=== PATIENT | female | born 1950 | race Caucasian/White ===

== ENCOUNTER → 2016-05-10 | Outpatient (CLI) | payer SELFPAY ==
[2016-05-10 11:44] LABS: ABSOLUTE EOSINOPHILS # (AUTO) 0.1 10^3/uL (0.0-0.6); ABSOLUTE LYMPHOCYTES (AUTO) 1.6 10^3/uL (0.5-4.7); ABSOLUTE MONOCYTES (AUTO) 0.2 10^3/uL (0.1-1.4); BASOPHILS % (AUTO) 0.2 % (0-2); HEMATOCRIT 23.6 % (36.0-47.0); HEMOGLOBIN 8.1 g/dL (12.0-15.5); HGB HCT DIFFERENCE 0.7; LYMPHOCYTES % (AUTO) 41.9 % (13-45); MEAN CORPUSCULAR HGB CONC 34.3 g/dL (32.0-36.0); MEAN CORPUSCULAR VOLUME 93 fl (80-97); MONOCYTES % (AUTO) 4.7 % (3-13); RED BLOOD COUNT 2.53 10^6/uL (3.72-5.28); RED CELL DISTRIBUTION WIDTH 21.1 % (11.5-14.0); SEGMENTED NEUTROPHILS % (AUTO) 51.2 % (42-78); WHITE BLOOD COUNT 3.9 10^3/uL (4.0-10.5)
== END ==
LOC: OD 09:50
PROVIDERS: ATTEND Internal Medicine Hematology & Oncology
DX: D64.9 Anemia, unspecified (principal)
CPT/HCPCS: 36415; 85025

== ENCOUNTER 2016-09-12 18:54 | Inpatient (IN) | payer MEDICARE, OTHER ==
--- NOTE | 2016-09-12 19:23 | ER Document Report ---
ED General - General Chief Complaint: Respiratory Distress Stated Complaint: RESPIRATORY DISTRESS Time Seen by Provider: 09/12/16 18:57 Mode of Arrival: Medic Information source: Patient, Emergency Med Personnel Notes: 66-year-old female history of lung CA congestive heart failure presents in respiratory distress. Patient is noted to be in significant distress by EMS satting 85% on room air. Patient was given nonrebreather and O2 sats improved to 100%, patient does note lower extremity edema TRAVEL OUTSIDE OF THE [place] IN LAST 30 DAYS: No - HPI Onset: Just prior to arrival Onset/Duration: Sudden Quality of pain: No pain Severity: Moderate Pain Level: Denies Associated symptoms: Shortness of breath Exacerbated by: Walking Relieved by: Denies Similar symptoms previously: Yes Recently seen / treated by doctor: Yes - Related Data Allergies/Adverse Reactions: codeine [Codeine] Allergy (Verified 09/07/13 20:26) propoxyphene napsylate [From Darvocet-N 100] Allergy (Verified 09/07/13 20:26) Past Medical History - Social History Smoking Status: Former Smoker Cigarette use (# per day): No Chew tobacco use (# tins/day): No Smoking Education Provided: No Family History: Reviewed & Not Pertinent - Past Medical History Cardiac Medical History: Reports: Hx Hypertension Denies: Hx Heart Attack Pulmonary Medical History: Denies: Hx Asthma Neurological Medical History: Denies: Hx Cerebrovascular Accident, Hx Seizures Endocrine Medical History: Reports: Hx Diabetes Mellitus Type 1, Hx Diabetes Mellitus Type 2 GI Medical History: Reports: Hx Hiatal Hernia. Denies: Hx Hepatitis, Hx Ulcer Infectious Medical History: Denies: Hx Hepatitis Past Surgical History: Reports: Hx Appendectomy, Hx Hysterectomy. Denies: Hx Mastectomy, Hx Open Heart Surgery, Hx Pacemaker - Immunizations Hx Diphtheria, Pertussis, Tetanus Vaccination: No Hx Pneumococcal Vaccination: 01/09/13 Review of Systems - Review of Systems Notes: REVIEW OF SYSTEMS: CONSTITUTIONAL : Denies fever, chills, or sweats. Denies recent illness. EENT: Denies eye, ear, throat, or mouth pain or symptoms. Denies nasal or sinus congestion or discharge. Denies throat, tongue, or mouth swelling or difficulty swallowing. CARDIOVASCULAR: Denies chest pain. Denies palpitations or racing or irregular heart beat. Denies ankle edema. RESPIRATORY: Admits to shortness of breath difficulty breathing GASTROINTESTINAL: Denies abdominal pain or distention. Denies nausea, vomiting , or diarrhea. Denies blood in vomitus, stools, or per rectum. Denies black, tarry stools. Denies constipation. GENITOURINARY: Denies difficulty urinating, painful urination, burning, frequency, blood in urine, or discharge. FEMALE GENITOURINARY: Denies vaginal bleeding, heavy or abnormal periods, irregular periods. Denies vaginal discharge or odor. MUSCULOSKELETAL: Denies back or neck pain or stiffness. Denies joint pain or swelling. SKIN: Denies rash, lesions or sores. HEMATOLOGIC : Denies easy bruising or bleeding. LYMPHATIC: Denies swollen, enlarged glands. NEUROLOGICAL: Denies confusion or altered mental status. Denies passing out or loss of consciousness. Denies dizziness or lightheadedness. Denies headache. Denies weakness or paralysis or loss of use of either side. Denies problems with gait or speech. Denies sensory loss, numbness, or tingling. Denies seizures. PSYCHIATRIC: Denies anxiety or stress. Denies depression, suicidal ideation, or homicidal ideation. ALL OTHER SYSTEMS REVIEWED AND NEGATIVE. Dictation was performed using [employer] voice recognition software PHYSICAL EXAMINATION: GENERAL: Well-appearing, well-nourished and in mild respiratory distress HEAD: Atraumatic, normocephalic. EYES: Pupils equal round and reactive to light, extraocular movements intact, conjunctiva are normal. ENT: Nares patent, oropharynx clear without exudates. Moist mucous membranes. NECK: Normal range of motion, supple without lymphadenopathy LUNGS: Wheezing all throughout rhonchi at the bases HEART: Regular rate and rhythm without murmurs ABDOMEN: Soft, nontender, nondistended abdomen. No guarding, no rebound. No masses appreciated. Female : deferred Musculoskeletal: Normal range of motion, no pitting or edema. No cyanosis. NEUROLOGICAL: Cranial nerves grossly intact. Normal speech, normal gait. Normal sensory, motor exams PSYCH: Normal mood, normal affect. SKIN: Warm, Dry, normal turgor, no rashes or lesions noted. Physical Exam - Vital signs Vitals: Resp Pulse Ox 29 H 100 09/12/16 19:03 09/12/16 19:03 Course - Re-evaluation Re-evalutation: 09/12/16 19:22 Patient immediately switched to BiPAP, septic workup pending 09/12/16 20:34 pneumonia noted, lactic acid elevated, pt started on levaquin juan miguel mascorro paged, no beds available - Vital Signs Vital signs: Temp Pulse Resp BP Pulse Ox 27 H 142/78 H 100 09/12/16 19:12 09/12/16 19:12 09/12/16 19:12 - Laboratory Result Diagrams: 09/12/16 19:07 09/12/16 19:07 Laboratory results interpreted by me: 09/12/16 09/12/16 09/12/16 19:07 19:07 19:07 WBC 14.1 H RBC 3.17 L Hgb 10.1 L Hct 30.7 L RDW 15.9 H Monocytes % 2.7 L Absolute Neutrophils 10.5 H BUN 25 H Est GFR (Non-Af Amer) 59 L Glucose 287 H Lactic Acid 2.6 H Urine Protein Urine Glucose (UA) Urine Ketones Urine Blood Ur Leukocyte Esterase 09/12/16 19:30 WBC RBC Hgb Hct RDW Monocytes % Absolute Neutrophils BUN Est GFR (Non-Af Amer) Glucose Lactic Acid Urine Protein 100 H Urine Glucose (UA) 50 H Urine Ketones TRACE H Urine Blood SMALL H Ur Leukocyte Esterase SMALL H Discharge - Discharge Clinical Impression: Lactic acidosis, Chronic obstructive lung disease Pneumonia Qualifiers: Pneumonia type: due to unspecified organism Laterality: bilateral Lung location : lower lobe of lung Qualified Code(s): J18.9 - Pneumonia, unspecified organism Leukocytosis Qualifiers: Leukocytosis type: unspecified Qualified Code(s): D72.829 - Elevated white blood cell count, unspecified Condition: Fair Disposition: ADMITTED INPATIENT Admitting Provider: Hospitalist Unit Admitted: IMCU
[2016-09-12 19:30] LABS: VENOUS BLOOD BASE EXCESS 0.6 mmol/L; VENOUS BLOOD HCO3 26.5 mmol/L (20-32); VENOUS BLOOD PCO2 48.8 mmHg (35-63); VENOUS BLOOD PH 7.35 (7.30-7.42)
[2016-09-12 19:34] LABS: PROTHROMBIN TIME 12.3 SEC (11.4-15.4)
[2016-09-12 19:35] LABS: ABSOLUTE BASOPHILS # (AUTO) 0.1 10^3/uL (0.0-0.2); ABSOLUTE EOSINOPHILS # (AUTO) 0.1 10^3/uL (0.0-0.6); ABSOLUTE MONOCYTES (AUTO) 0.4 10^3/uL (0.1-1.4); ABSOLUTE NEUT (AUTO) 10.5 10^3/uL (1.7-8.2); BASOPHILS % (AUTO) 0.6 % (0-2); HEMATOCRIT 30.7 % (36.0-47.0); HEMOGLOBIN 10.1 g/dL (12.0-15.5); HGB HCT DIFFERENCE -0.4; LYMPHOCYTES % (AUTO) 21.2 % (13-45); MEAN CORPUSCULAR HEMOGLOBIN 31.9 pg (27.0-33.4); MEAN CORPUSCULAR HGB CONC 32.9 g/dL (32.0-36.0); MEAN CORPUSCULAR VOLUME 97 fl (80-97); MONOCYTES % (AUTO) 2.7 % (3-13); RED BLOOD COUNT 3.17 10^6/uL (3.72-5.28); RED CELL DISTRIBUTION WIDTH 15.9 % (11.5-14.0); SEGMENTED NEUTROPHILS % (AUTO) 74.5 % (42-78); WHITE BLOOD COUNT 14.1 10^3/uL (4.0-10.5)
[2016-09-12 19:43] LABS: ALANINE AMINOTRANSFERASE 22 U/L (9-52); ALKALINE PHOSPHATASE 115 U/L (38-126); ANION GAP 14 (5-19); ASPARTATE AMINO TRANSFERASE 14 U/L (14-36); BILIRUBIN,DIRECT 0.3 mg/dL (0.0-0.4); BILIRUBIN,TOTAL 0.6 mg/dL (0.2-1.3); BLOOD UREA NITROGEN 25 mg/dL (7-20); CALCIUM 9.5 mg/dL (8.4-10.2); CARBON DIOXIDE 26 mmol/L (22-30); CHLORIDE 98 mmol/L (98-107); CREATININE RESULT 0.95 mg/dL (0.52-1.25); GLUCOSE 287 mg/dL (75-110); POTASSIUM 4.1 mmol/L (3.6-5.0); SODIUM 137.8 mmol/L (137-145); TOTAL PROTEIN 7.3 g/dL (6.3-8.2)
[2016-09-12] MEDS ORDERED: NORMAL SALINE 1000 ML 1,000 ML IV ONE (19:47)
[2016-09-12] MEDS ORDERED: LEVOFLOXACIN 500 MG/D5W RTU 100 ML IV ONE (19:47)
--- NOTE | 2016-09-12 19:56 | RADIOLOGY REPORT (SQ) ---
EXAM DESCRIPTION: CHEST SINGLE VIEW COMPLETED DATE/TIME: 09/12/2016 7:48 pm REASON FOR STUDY: resp distress COMPARISON: 01/10/2016. NUMBER OF VIEWS: One view. TECHNIQUE: Single frontal radiographic view of the chest acquired. LIMITATIONS: None. FINDINGS: LUNGS AND PLEURA: Patchy areas of bibasilar airspace disease. Particularly in the right l ower lobe with air bronchograms noted. Upper lung calvo are relatively clear. No significant pleur al fluid. No pneumonia. MEDIASTINUM AND HILAR STRUCTURES: Stable contours. HEART AND VASCULAR STRUCTURES: Heart normal in size. Normal vasculature. BONES: No acute findings. HARDWARE: Right port, tip to the superior vena cava. OTHER: No other significant finding. IMPRESSION: Basilar infiltrates, likely pneumonia. TECHNICAL DOCUMENTATION: JOB ID: [id number] [employer]- All Rights Reserved
[2016-09-12 20:03] LABS: APPEARANCE,URINE SLIGHTLY-CLOUDY; BILIRUBIN,URINE NEGATIVE (NEGATIVE); GLUCOSE, URINE 50 mg/dL (NEGATIVE); KETONES,URINE TRACE mg/dL (NEGATIVE); LEUKOCYTE ESTERASE,URINE SMALL (NEGATIVE); NITRITE,URINE NEGATIVE (NEGATIVE); PROTEIN,URINE 100 mg/dL (NEGATIVE); URINE SPECIFIC GRAVITY 1.014; UROBILINOGEN,URINE NEGATIVE mg/dL (<2.0)
[2016-09-12] MEDS ORDERED: IPRATROPIUM/ALBUTEROL 0.5-2.5 MG/3 ML AMPUL NEB ONE (20:30)
[2016-09-12] MEDS ORDERED: GLUCAGON,HUMAN RECOMB 1 MG INJ IM PRN (22:49)
[2016-09-12] MEDS ORDERED: DEXTROSE 40% GEL 15 GM TUBE PO PRN ×2 (22:49)
[2016-09-12] MEDS ORDERED: DEXTROSE 50%-WATER 25 GM/50 ML DISP.SYRIN IV PRN ×2 (22:49)
[2016-09-12] MEDS ORDERED: GUAIFENESIN SYRP 200 MG/10 ML UDC PO PRN (22:50)
[2016-09-12] MEDS ORDERED: ACETAMINOPHEN 325 MG TABLET PO PRN (22:50)
[2016-09-12 22:59] LABS: ADD ON TESTING BLD IN LAB ACKNOWLEDGE
[2016-09-12 23:09] LABS: MAGNESIUM 1.5 mg/dL (1.6-2.3)
--- NOTE | 2016-09-12 23:37 | EKG REPORT ---
SEVERITY:- ABNORMAL ECG - SINUS TACHYCARDIA NONSPECIFIC REPOL ABNORMALITY, LATERAL LEADS : Confirmed by: Stefan Aj 12-Sep-2016 23:37:18
[2016-09-13] MEDS: MAGNESIUM SULFATE/D5W 1 GM/100 ML RTUPB IV SCH ×2 (00:35→02:48)
--- NOTE | 2016-09-13 00:56 | PDOC H&P ---
History of Present Illness Admission Date/PCP: 09/12/16 22:[address] Rose Onco Dr. marshall Patient complains of: sob History of Present Illness: ZOHAIB MITCHELL is a 66 year old female with, by her account, no chronic underlying pulmonary disease, such as asthma or COPD, although discharge summary from 2013 describes her as having COPD, also, with, by her account, lung cancer, status post chemotherapy for same, currently in remission , who presents to the emergency room for sudden onset of shortness of breath and difficulty breathing at 2 PM on the fourth. 85% on room air upon initial evaluation by EMS. Was in significant respiratory distress upon arrival in the emergency room. With nonrebreather, sats improved 100%, and she is breathing more comfortably. Describes a dry cough, along with "hot flashes." No nausea vomiting. Mild abdominal and chest discomfort, along with right shoulder pain. No diarrhea or dysuria. Has not smoked for several years. No home oxygen. Denies sleep apnea. hospitalized on our service September 08 - September 10, 2013 with final diagnoses of acute asthmatic bronchitis, COPD exacerbation and acute respiratory failure secondary to above. History and physical and discharge summary have been reviewed. Again , patient denies underlying COPD. Patient has been discussed with emergency room physician who evaluated the patient. Initial plans by the emergency room physician were to obtain CT angiogram of chest. However, with workup now revealing bibasilar pneumonia by plain chest x-ray, he no longer feels such test is warranted. Discussion with evaluating ER physician concerning same at 12:15 AM on September 13, 2016. Laboratory results are listed in [email or web address] and are reviewed. X-ray summary results are listed below, with full report(s) reviewed. EKG reviewed and compared to tracing from September 082013. Social history/personal habits: . Has children. On disability due to health problems. No use of alcohol tobacco or illicit drugs. Allergies/adverse reactions are listed in [facility] and are reviewed. Home medications initially autopopulated into [facility] may not accurately reflect patient's true medications, dosages, and/or frequencies. supply chain tech and/or nursing staff to reconcile medications. Unfortunately, patient not certain of all medications/dosages/frequencies. REVIEW OF SYSTEMS: Constitutional: See history and present illness. Eyes: Wears glasses ENT: No swallowing problems or complaints. Denies hearing loss. Pulmonary: See history and present illness. Cardiovascular: See history and present illness. Gastrointestinal: See history and present illness. Skin: No current complaints, including rashes. Hematologic: Denies easy bruising. Neurologic: Chronic numbness and tingling of her feet secondary to diabetic neuropathy. Musculoskeletal: Joint pain from arthritis. Psychiatric: Denies anxiety or depression. Endocrine: No current complaints, including polyuria. Genitourinary: No current complaints, including dysuria. PHYSICAL EXAMINATION: 5 feet 6 inches tall. 93.9 kg. BMI 33.4 kg/m. Blood pressure 132/64. Pulse 98 and regular. 100% saturation on nonrebreather mask. Respirations are 20 and unlabored. Temperature not recorded on chart; skin feels normothermic. Obese otherwise well-developed though somewhat chronically ill-appearing female who nevertheless appears approximately her stated age. Pleasant awake alert and cooperative. No obvious distress other than somewhat anxious. No agitation. Male and female take up operator are present at her side; patient approves. Female emergency room nursing service administrator Scarlett is present. Skin is warm and dry. No grossly obvious evidence of rash in areas of skin examined. No subcutaneous nodules palpated. ENT: Hearing grossly normal to normal conversation. Tongue midline on protrusion pink and slightly tacky. Eyes: No scleral icterus. Pupils equal and reactive to light at 4 mm. [place] conjunctivae. Neck is supple and nontender to gentle active range of motion and palpation. Midline trachea. No palpable thyroid nodule mass enlargement or tenderness. Lymphatic: No palpable cervical or clavicular nodes. Neck and lymphatic exams limited by patient body habitus. Psychiatric: Reasonable insight into acute and chronic medical issues. Oriented to time location and why here. Lungs: Auscultation reveals equal breath sounds bilaterally. No use of accessory respiratory muscles. Faintly coarse breath sounds in each base, left greater than right. breath sounds clear otherwise. Cardiovascular: Heart regular rate and rhythm, without gallop murmur or rub. No carotid or abdominal aortic bruits. No ankle or pedal edema. Faintly palpable dorsalis pedis pulses. Abdomen:soft somewhat obese nontender with positive bowel sounds. Unable to adequately evaluate abdomen for masses or organomegaly due to body habitus. Extremities: Feet are warm and dry. No calf tenderness to compression. No grossly obvious visual evidence of calf swelling. Gentle manipulation of lower extremities fails to reveal any obvious evidence of injury or instability to knees hips or ankles. Neurologic: Moves upper extremities grossly normally. Patellar reflexes absent. Absent Babinski. Light touch decreased at feet, a chronic finding according to patient, without recent change. Dorsiflexion and plantarflexion of feet 5 / 5 and symmetric. Past Medical History Cardiac Medical History: Reports: Congestive Heart Failure - No documentation of ejection fraction in our records. Patient uncertain., Hyperlipidema, Hypertension Denies: DVT, Myocardial Infarction, Pulmonary Embolism Pulmonary Medical History: Denies: Asthma, Chronic Obstructive Pulmonary Disease (COPD), Sleep Apnea EENT Medical History: Reports: Eyes - Glasses Denies: Ears, Throat Neurological Medical History: Denies: Hemorrhagic CVA, Ischemic CVA, Seizures Endocrine Medical History: Reports: Diabetes Mellitus Type 1, Diabetes Mellitus Type 2 Denies: Hyperthyroidism, Hypothyroidism Renal/ Medical History: Reports: None Malignancy Medical History: Reports: Lung Cancer - In remission, status post chemotherapy., Skin Cancer GI Medical History: Reports: Gastroesophageal Reflux Disease Denies: Cirrhosis, Hepatitis, Peptic Ulcer Disease Musculoskeltal Medical History: Reports: Arthritis Skin Medical History: Reports: Other - Prior skin cancer Psychiatric Medical History: Denies: Alcohol Dependency, Depression, General Anxiety Disorder, Substance Abuse, Tobacco Dependency Hematology: Denies: Anemia, Sickle Cell Disease Infectious Medical History: Denies: Clostridium Difficile, Hepatitis B, Hepatitis C, Methicillin- Resistant Staph Aureus Past Surgical History Past Surgical History: Reports: Appendectomy, Hysterectomy Social History Information Source: Patient, Emergency Med Personnel, [facility] Records Lives with: Spouse/Significant other Smoking Status: Former Smoker Frequency of Alcohol Use: None Hx Recreational Drug Use: No Drugs: None Hx Prescription Drug Abuse: No - Advance Directive Resuscitation Status: Do Not Resuscitate - Implications of DO NOT RESUSCITATE/ DO NOT INTUBATE status discussed with patient. Discussed in layperson's terms. Implications understood. Patient is the health care decision maker. Patient conversation is lucid and appropriate. Patient desires DO NOT RESUSCITATE/DO NOT INTUBATE status. Will honor patient wishes. Surrogate healthcare decision maker:: Family History Family History: Reviewed & Not Pertinent Parental Family History Reviewed: Yes - Parents of myocardial infarctions Children Family History Reviewed: Yes - Healthy Sibling(s) Family History Reviewed.: Yes - Healthy Medication/Allergy Home Medications: Lorazepam [Ativan 1 mg Tablet] 1 mg PO TIDP PRN 09/13/16 RX: Furosemide [Lasix] 40 mg PO DAILY 09/13/16 RX: Glimepiride [Amaryl 4 mg Tablet] 4 mg PO BID 09/13/16 RX: Insulin Glargine,Hum.rec.anlog [Touandreao Solostar] 30 units SQ DAILY 09/13/16 RX: Losartan Potassium [Cozaar 100 mg Tablet] 100 mg PO DAILY 09/13/16 RX: Magnesium Oxide [Mag-Ox 400 mg Tablet] 800 mg PO TID 09/13/16 RX: Metformin HCl [Glucophage] 500 mg PO TID 09/13/16 RX: Metoprolol Tartrate [Lopressor] 50 mg PO BID 09/13/16 RX: Omeprazole 40 mg PO BID 09/13/16 RX: Oxycodone HCl/Acetaminophen [Percocet 5-325 mg Tablet] 1 tab PO Q6HP PRN 08/25 RX: Levofloxacin [Levaquin 750 mg Tablet] 750 mg PO DAILY #10 tablet 09/16/16 Allergies/Adverse Reactions: codeine [Codeine] Allergy (Verified 09/12/16 23:01) propoxyphene napsylate [From Darvocet-N 100] Allergy (Verified 09/07/13 20:26) hydrocodone [From Vicodin] Adverse Reaction (Mild, Verified 09/12/16 23:01) Migraine Physical Exam Vital Signs: Temp Pulse Resp BP Pulse Ox 27 H 142/78 H 100 09/12/16 19:12 09/12/16 19:12 09/12/16 19:12 Results Impressions: Chest X-Ray 09/12/16 18:57 IMPRESSION: Basilar infiltrates, likely pneumonia. Assessment & Plan - Diagnosis (1) Abnormal urinalysis Is this a current diagnosis for this admission?: YesPlan: Urine culture. (2) Basal pneumonia of both lungs Is this a current diagnosis for this admission?: YesPlan: Patient will be admitted under pneumonia protocol. Incentive spirometry twice a day. As needed DuoNeb's. Antibiotics will consist of intravenous Zithromax and Rocephin. I strongly encouraged patient to notify staff should patient feel that breathing is worsening. Patient is a full code. I have strongly encouraged patient not to get out of bed without notifying staff , to avoid a fall with injury. Knee high SCDs for DVT prophylaxis, along with subcutaneous Lovenox. Patient initially requested to the emergency room physician that she be transferred to [facility]. No beds available there. Therefore, she has been admitted to our facility. Impression and plans were discussed with patient who concurs. Time spent in evaluation and management of patient: 65 minutes. 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 Accu-Cheks with appropriate sliding scale coverage. Resume home medications as appropriate once these have been determined and reviewed. (4) HTN (hypertension) Qualifiers: Hypertension type: essential hypertension Qualified Code(s): I10 - Essential (primary) hypertension Is this a current diagnosis for this admission?: YesPlan: Resume home medications as appropriate once these have been determined and reviewed. - Inpatient Certification Based on my medical assessment, after consideration of the patient's comorbidities, presenting symptoms, or acuity I expect that the services needed warrant INPATIENT care.: Yes I certify that my determination is in accordance with my understanding of Medicare's requirements for reasonable and necessary INPATIENT services [42 CFR 412.3e].: Yes Medical Necessity: Need Close Monitoring Due to Risk of Patient Decompensation, Need For Continuous Telemetry Monitoring, Need for Nebulizer Therapy and Monitoring of Response, Need for IV Antibiotics, Risk of Complication if Not Cared For in Hospital
[2016-09-13 05:55] LABS: ANION GAP 10 (5-19); BLOOD UREA NITROGEN 21 mg/dL (7-20); CALCIUM 8.8 mg/dL (8.4-10.2); CARBON DIOXIDE 28 mmol/L (22-30); CHLORIDE 100 mmol/L (98-107); CREATININE RESULT 0.76 mg/dL (0.52-1.25); GLUCOSE 155 mg/dL (75-110); POTASSIUM 3.9 mmol/L (3.6-5.0); SODIUM 138.4 mmol/L (137-145)
[2016-09-13 06:00] LABS: ABSOLUTE BASOPHILS # (AUTO) 0.1 10^3/uL (0.0-0.2); ABSOLUTE EOSINOPHILS # (AUTO) 0.1 10^3/uL (0.0-0.6); ABSOLUTE LYMPHOCYTES (AUTO) 2.6 10^3/uL (0.5-4.7); ABSOLUTE MONOCYTES (AUTO) 0.5 10^3/uL (0.1-1.4); ABSOLUTE NEUT (AUTO) 8.1 10^3/uL (1.7-8.2); BASOPHILS % (AUTO) 0.6 % (0-2); EOSINOPHILS % (AUTO) 1.3 % (0-6); HEMATOCRIT 25.5 % (36.0-47.0); HEMOGLOBIN 8.3 g/dL (12.0-15.5); HGB HCT DIFFERENCE -0.6; LYMPHOCYTES % (AUTO) 22.7 % (13-45); MEAN CORPUSCULAR HGB CONC 32.6 g/dL (32.0-36.0); MEAN CORPUSCULAR VOLUME 98 fl (80-97); MONOCYTES % (AUTO) 4.4 % (3-13); RED CELL DISTRIBUTION WIDTH 15.7 % (11.5-14.0); WHITE BLOOD COUNT 11.4 10^3/uL (4.0-10.5)
[2016-09-13] MEDS: ENOXAPARIN SODIUM INJ 40 MG/0.4 ML DISP.SYRIN SUBCUT SCH (08:34)
[2016-09-13] MEDS: CEFTRIAXONE 1 GM/D5W RTU 50 ML IV SCH (08:36)
[2016-09-13] MEDS ORDERED: MAGNESIUM SULFATE/D5W 100 ML IV SCH (09:30)
--- NOTE | 2016-09-13 11:35 | RADIOLOGY REPORT (SQ) ---
EXAM DESCRIPTION: CTA CHEST COMPLETED DATE/TIME: 09/13/2016 11:17 am REASON FOR STUDY: hypoxia, dyspnea COMPARISON: None. TECHNIQUE: CT scan of the chest performed using helical scanning technique with dynamic intravenous contrast injection. Images reviewed with lung, soft tissue and bone windows. Reconstructed coronal and sagittal MPR images reviewed. Additional 3 dimensional post-processing performed to develop Maximal Intensity Projection images (MD P). All images stored on PACS. All CT scanners at this facility use dose modulation, iterative reconstruction, and/or weight based d osing when appropriate to reduce radiation dose to as low as reasonably achievable (ALARA). [facility]: Dose Right [facility]: CareDose [facility]: Dose Right [facility]: Teradose 4D [facility]: Raptr CONTRAST TYPE AND DOSE: 78 mL Isovue 370- low osmolar. RENAL FUNCTION: Creatinine 0.8 BUN 21 RADIATION DOSE: 72.11 mGy. LIMITATIONS: None. FINDINGS: LUNGS AND PLEURA: Small areas of ground-glass opacification are present in the right upper lobe. Pleural/parenchymal scarring is seen in the apices. There is a small left pleural effusion. There is subsegmental atelectasis in the left base. Air bronchograms are seen in the left lower lob e. There is a minimal right pleural effusion. AORTA AND GREAT VESSELS: No aneurysm or dissection. HEART: No pericardial effusion. PULMONARY ARTERIES: No emboli visualized in the main pulmonary arteries or the segmental branches. HILAR AND MEDIASTINAL STRUCTURES: A few small nonspecific mediastinal nodes are present. HARDWARE: An injection port is present on the right. UPPER ABDOMEN: No significant findings. Limited exam. THYROID AND OTHER SOFT TISSUES: No masses. No adenopathy. BONES: No acute or significant finding. 3D MIPS: Confirm above findings. OTHER: No other significant finding. IMPRESSION: 1. There is no evidence of pulmonary emboli. 2. There is apical pleural/parenchymal scarring. 3. Small areas of ground-glass opacification are present fairly extensively in the right upper lobe and apical segment of the right lower lobe. This is suggestive of acute infection or atypical infect ion. TECHNICAL DOCUMENTATION: JOB ID: [id number] Quality ID # [id number]: Final reports with documentation of one or more dose reduction techniques (e.g., Au tomated exposure control, adjustment of the mA and/or kV according to patient size, use of iterative reconstruction technique) 2010 [id number]- All Rights Reserved
[2016-09-13] MEDS: AZITHROMYCIN 500 MG in DEXTROSE 5%-WATER 250 ML IV SCH (11:37)
--- NOTE | 2016-09-13 11:46 | PDOC PROGRESS REPORT ---
Subjective Progress Note for:: 09/13/16 Subjective:: reason for visit: f/u pneumonia, sepsis, anemia hospital course: per other's notes - "ZOHAIB MITCHELL is a 66 year old female with no chronic underlying pulmonary disease by her account, such as asthma or COPD, although discharge summary from 2013 describes her as having COPD, also, with, by her account, lung cancer, status post chemotherapy for same, currently in remission, who presents to the emergency room for sudden onset of shortness of breath and difficulty breathing at 2 PM on the fourth. 85 % on room air upon initial evaluation by EMS. Was in significant respiratory distress upon arrival in the emergency room. With nonrebreather, sats improved 100%, and she is breathing more comfortably. Describes a dry cough, along with "hot flashes." No nausea vomiting. Mild abdominal and chest discomfort, along with right shoulder pain. No diarrhea or dysuria. Has not smoked for several years. No home oxygen. Denies sleep apnea. s noted above, was hospitalized on our service September 08 - September 10, 2013 with final diagnoses of acute asthmatic bronchitis, COPD exacerbation and acute respiratory failure secondary to above. History and physical and discharge summary have been reviewed. Again, patient denies underlying COPD. Patient has been discussed with emergency room physician who evaluated the patient. Initial plans by the emergency room physician were to obtain CT angiogram of chest. However, with workup now revealing bibasilar pneumonia by plain chest x-ray, he no longer feels such that he is warranted. Discussion with evaluating ER physician concerning same it 12:15 AM on September 13, 2016." I inherited her care Tuesday to find her sitting on edge of the bed in mild respiratory distress after returning from the bathroom to urinate. c/o cough with phlegm, feeling "poorly" but denies chest pain, palpitations, N/V, fever or chills. ROS: as above, total 10 system reviewed, remaining systems negative. Physical Exam Vital Signs: Temp Pulse Resp BP Pulse Ox 97.8 F 90 18 127/58 H 100 09/13/16 05:22 09/13/16 10:54 09/13/16 10:54 09/13/16 09:01 09/13/16 10:54 General appearance: PRESENT: cooperative, disheveled, mild distress, obese, well -developed, well-nourished Head exam: PRESENT: atraumatic, normocephalic Eye exam: PRESENT: EOMI. ABSENT: conjunctival injection, scleral icterus Mouth exam: PRESENT: moist, neck supple Neck exam: PRESENT: full ROM. ABSENT: lymphadenopathy, tracheal deviation Respiratory exam: PRESENT: accessory muscle use, crackles - R>L, prolonged expiratory phas, tachypnea. ABSENT: rhonchi, stridor, wheezes Cardiovascular exam: PRESENT: RRR. ABSENT: systolic murmur Pulses: PRESENT: normal radial pulses, normal dorsalis pedis pul GI/Abdominal exam: PRESENT: normal bowel sounds, soft. ABSENT: tenderness Extremities exam: PRESENT: clubbing, +1 edema. ABSENT: calf tenderness Musculoskeletal exam: PRESENT: ambulatory, full ROM Neurological exam: PRESENT: alert, awake, oriented to person, oriented to place , oriented to time, oriented to situation Psychiatric exam: PRESENT: appropriate affect, normal mood Skin exam: PRESENT: dry, warm Results Laboratory Results: 09/13/16 05:30 09/13/16 05:30 09/13/16 09/13/16 09/13/16 05:30 05:30 05:30 WBC 11.4 H RBC 2.60 L Hgb 8.3 L Hct 25.5 L MCV 98 H MCH 32.0 MCHC 32.6 RDW 15.7 H Plt Count 167 Seg Neutrophils % 71.0 Lymphocytes % 22.7 Monocytes % 4.4 Eosinophils % 1.3 Basophils % 0.6 Absolute Neutrophils 8.1 Absolute Lymphocytes 2.6 Absolute Monocytes 0.5 Absolute Eosinophils 0.1 Absolute Basophils 0.1 Retic Count (auto) 3.39 H Absolute Retic 0.090 Sodium 138.4 Potassium 3.9 Chloride 100 Carbon Dioxide 28 Anion Gap 10 BUN 21 H Creatinine 0.76 Est GFR ( Amer) > 60 Est GFR (Non-Af Amer) > 60 Glucose 155 H Calcium 8.8 Impressions: Chest X-Ray 09/12/16 18:57 IMPRESSION: Basilar infiltrates, likely pneumonia. Status: Image reviewed by me - agree with radiology; ct chest shows left effusion and LLL airspace disease with scattered bialt upper lobe airspace disease as well. Assessment & Plan - Diagnosis (1) Pneumonia Qualifiers: Pneumonia type: due to unspecified organism Laterality: bilateral Lung location: lower lobe of lung Qualified Code(s): J18.9 - Pneumonia, unspecified organism Is this a current diagnosis for this admission?: YesPlan: unchanged; continue rocephin and zmax (2) Sepsis Qualifiers: Sepsis type: sepsis due to unspecified organism Qualified Code(s): A41.9 - Sepsis, unspecified organism Is this a current diagnosis for this admission?: YesPlan: improved but not back to baseline; evidenced by tachycardia, tachypnea, leukocytosis, lactic acidosis and source; continue abx and IVFs (3) Hypomagnesemia Is this a current diagnosis for this admission?: YesPlan: new; replace and monitor (4) Benign essential hypertension Is this a current diagnosis for this admission?: YesPlan: stable; continue home regimen (5) Anemia Qualifiers: Anemia type: unspecified type Qualified Code(s): D64.9 - Anemia, unspecified Is this a current diagnosis for this admission?: YesPlan: worse, possibly dilutional as no evidence for acute blood loss; ck anemia labs and monitor H/H (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 Qualifiers: Diabetes mellitus complication detail: with unspecified neuropathy Qualified Code(s): E10.40 - Type 1 diabetes mellitus with diabetic neuropathy, unspecified Is this a current diagnosis for this admission?: YesPlan: stable; cover with SSI (7) HTN (hypertension) Qualifiers: Hypertension type: essential hypertension Qualified Code(s): I10 - Essential (primary) hypertension Is this a current diagnosis for this admission?: Yes (8) Congestive heart failure Qualifiers: Congestive heart failure type: unspecified congestive heart failure type Congestive heart failure chronicity: chronic Qualified Code(s): I50.9 - Heart failure, unspecified Is this a current diagnosis for this admission?: YesPlan: reports a hx of CHF but no echo in file to document last known EF. ck BNP and if elevated or if her clinical condition fails to improve, consider echo to document LV fxn. she appears mildly hypervolemic at present. hold IVFs for now , even in light of the sepsis, careful monitoring of volume and hemodynamic status - Time Time Spent with patient: 35 or more minutes Medications reviewed and adjusted accordingly: Yes
[2016-09-13] MEDS: INSULIN LISPRO 100 UNIT/ML 3 ML VIAL SUBCUT PRN ×3 (13:43→22:47)
[2016-09-13] MEDS ORDERED: OXYCODONE HCL IR 5 MG TABLET PO PRN (20:38)
[2016-09-13] MEDS: LORAZEPAM 1 MG TABLET PO PRN (21:28)
[2016-09-14 05:53] LABS: ABSOLUTE EOSINOPHILS # (AUTO) 0.2 10^3/uL (0.0-0.6); ABSOLUTE LYMPHOCYTES (AUTO) 2.5 10^3/uL (0.5-4.7); ABSOLUTE MONOCYTES (AUTO) 0.4 10^3/uL (0.1-1.4); ABSOLUTE NEUT (AUTO) 5.3 10^3/uL (1.7-8.2); BASOPHILS % (AUTO) 0.5 % (0-2); EOSINOPHILS % (AUTO) 2.5 % (0-6); HEMATOCRIT 24.5 % (36.0-47.0); HEMOGLOBIN 8.1 g/dL (12.0-15.5); HGB HCT DIFFERENCE -0.2; LYMPHOCYTES % (AUTO) 29.9 % (13-45); MEAN CORPUSCULAR VOLUME 97 fl (80-97); MONOCYTES % (AUTO) 4.4 % (3-13); RED BLOOD COUNT 2.53 10^6/uL (3.72-5.28); SEGMENTED NEUTROPHILS % (AUTO) 62.7 % (42-78); WHITE BLOOD COUNT 8.5 10^3/uL (4.0-10.5)
[2016-09-14 06:14] LABS: ANION GAP 9 (5-19); BLOOD UREA NITROGEN 16 mg/dL (7-20); CALCIUM 9.2 mg/dL (8.4-10.2); CARBON DIOXIDE 27 mmol/L (22-30); CHLORIDE 100 mmol/L (98-107); CREATININE RESULT 0.92 mg/dL (0.52-1.25); GLUCOSE 230 mg/dL (75-110); MAGNESIUM 1.6 mg/dL (1.6-2.3); SODIUM 135.5 mmol/L (137-145)
[2016-09-14] MEDS: ENOXAPARIN SODIUM INJ 40 MG/0.4 ML DISP.SYRIN SUBCUT SCH (08:51)
[2016-09-14] MEDS: INSULIN LISPRO 100 UNIT/ML 3 ML VIAL SUBCUT PRN ×4 (08:51→21:48)
[2016-09-14] MEDS: CEFTRIAXONE 1 GM/D5W RTU 50 ML IV SCH (09:19)
[2016-09-14] MEDS: AZITHROMYCIN 500 MG in DEXTROSE 5%-WATER 250 ML IV SCH (09:19)
[2016-09-14] MEDS: LOSARTAN POTASSIUM 50 MG TABLET PO SCH (09:20)
[2016-09-14] MEDS: MAGNESIUM OXIDE 400 MG TABLET PO SCH ×2 (09:21→17:28)
[2016-09-14] MEDS: GLIMEPIRIDE 4 MG TABLET PO SCH ×2 (09:21→17:28)
[2016-09-14] MEDS: METOPROLOL TARTRATE 50 MG TABLET PO SCH ×2 (09:21→21:34)
[2016-09-14] MEDS ORDERED: (PENDING PHARMACY ID) (Insulin Glargine,Hum.Rec.Anlog [Toujeo Solostar] 30 UNITS) SQ SCH (10:00)
[2016-09-14] MEDS: IPRATROPIUM/ALBUTEROL 0.5-2.5 MG/3 ML AMPUL NEB PRN ×2 (11:25→21:51)
--- NOTE | 2016-09-14 18:21 | PDOC PROGRESS REPORT ---
Subjective Progress Note for:: 09/14/16 Subjective:: This is a follow-up visit for pneumonia. The patient currently complains of being very tired and feeling wiped out. She asks if she can take a shower. I spoke with her nurse who tells me she is quite tachypneic and that her oxygen drops when she gets up to move around. Currently denies any chest discomfort overall her breathing is better Physical Exam Vital Signs: Temp Pulse Resp BP Pulse Ox 97.9 F 88 17 130/60 H 100 09/14/16 16:14 09/14/16 16:14 09/14/16 16:14 09/14/16 16:14 09/14/16 16:14 Intake & Output 09/13/16 09/14/16 09/15/16 06:59 06:59 06:59 Intake Total 580 1158 Output Total 300 Balance 580 858 Weight 88.451 kg Physical exam: General: This is a well-developed well-nourished overweight white female resting in her chair currently in no acute distress Heart: Regular rate and rhythm no murmurs rubs or gallops Lungs: Crackles at both bases will equal rise and fall of the chest Abdomen: Nondistended Extremities: Trace edema. No clubbing cyanosis Neuro: Awake alert oriented cranial nerves are grossly intact Results Laboratory Results: 09/14/16 05:45 09/14/16 05:45 09/13/16 09/14/16 09/14/16 05:30 05:45 05:45 WBC 8.5 RBC 2.53 L Hgb 8.1 L Hct 24.5 L MCV 97 MCH 32.0 MCHC 33.0 RDW 16.0 H Plt Count 163 Seg Neutrophils % 62.7 Lymphocytes % 29.9 Monocytes % 4.4 Eosinophils % 2.5 Basophils % 0.5 Absolute Neutrophils 5.3 Absolute Lymphocytes 2.5 Absolute Monocytes 0.4 Absolute Eosinophils 0.2 Absolute Basophils 0.0 Sodium 135.5 L Potassium 4.0 Chloride 100 Carbon Dioxide 27 Anion Gap 9 BUN 16 Creatinine 0.92 Est GFR ( Amer) > 60 Est GFR (Non-Af Amer) > 60 Glucose 230 H Calcium 9.2 Magnesium 1.6 Transferrin 199 L 09/13/16 05:30 NT-Pro-B Natriuret Pep 5830 H Impressions: Chest X-Ray 09/12/16 18:57 IMPRESSION: Basilar infiltrates, likely pneumonia. Chest/Abdomen CTA 09/13/16 00:00 IMPRESSION: 1. There is no evidence of pulmonary emboli. 2. There is apical pleural/parenchymal scarring. 3. Small areas of ground-glass opacification are present fairly extensively in the right upper lobe and apical segment of the right lower lobe. This is suggestive of acute infection or atypical infection. 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 Qualifiers: Diabetes mellitus complication detail: with unspecified neuropathy Qualified Code(s): E10.40 - Type 1 diabetes mellitus with diabetic neuropathy, unspecified Is this a current diagnosis for this admission?: YesPlan: Current medications (5) HTN (hypertension) Qualifiers: Hypertension type: essential hypertension Qualified Code(s): I10 - Essential (primary) hypertension Is this a current diagnosis for this admission?: YesPlan: Continue current medications - Time Time Spent with patient: 25-34 minutes - Inpatient Certification Medical Necessity: Need Close Monitoring Due to Risk of Patient Decompensation
[2016-09-14] MEDS: LORAZEPAM 1 MG TABLET PO PRN (23:36)
[2016-09-15] MEDS: IPRATROPIUM/ALBUTEROL 0.5-2.5 MG/3 ML AMPUL NEB PRN (09:00)
[2016-09-15] MEDS ORDERED: AZITHROMYCIN 250 MG TABLET PO SCH (10:00)
[2016-09-15] MEDS: CEFTRIAXONE 1 GM/D5W RTU 50 ML IV SCH (10:01)
[2016-09-15] MEDS: METOPROLOL TARTRATE 50 MG TABLET PO SCH ×2 (10:01→21:28)
[2016-09-15] MEDS: ENOXAPARIN SODIUM INJ 40 MG/0.4 ML DISP.SYRIN SUBCUT SCH (10:01)
[2016-09-15] MEDS: MAGNESIUM OXIDE 400 MG TABLET PO SCH ×2 (10:01→18:11)
[2016-09-15] MEDS: INSULIN LISPRO 100 UNIT/ML 3 ML VIAL SUBCUT PRN ×3 (10:01→21:28)
[2016-09-15] MEDS: GLIMEPIRIDE 4 MG TABLET PO SCH ×2 (10:01→18:11)
[2016-09-15] MEDS: LOSARTAN POTASSIUM 50 MG TABLET PO SCH (10:01)
--- NOTE | 2016-09-15 14:10 | PDOC PROGRESS REPORT ---
Subjective Progress Note for:: 09/15/16 Subjective:: This is a follow-up visit for pneumonia. The patient feels happier today because her is at bedside. She states that she had a difficult night in terms of getting any sleep because there was a patient on the [facility] who was screaming out for most of the night. She says that her shortness of breath is still fairly significant when she tries to get up and ambulate to the bathroom. Currently denies any chest discomfort. Physical Exam Vital Signs: Temp Pulse Resp BP Pulse Ox 98.0 F 90 20 122/62 100 09/15/16 11:30 09/15/16 11:30 09/15/16 11:30 09/15/16 11:30 09/15/16 11:30 Intake & Output 09/14/16 09/15/16 09/16/16 06:59 06:59 06:59 Intake Total 580 1494 Output Total 950 Balance 580 544 Weight 88.451 kg Physical exam: General: This is a well-developed well-nourished overweight white female resting on the side of her bed currently in no acute distress Heart: Regular rate and rhythm no murmurs rubs or gallops Lungs: Diminished breath sounds at the bases bilaterally with equal rise and fall of the chest Abdomen: Nondistended Extremities: Trace edema. No clubbing cyanosis Neuro: Awake alert oriented cranial nerves are grossly intact Results Laboratory Results: 09/14/16 05:45 09/14/16 05:45 09/13/16 05:30 NT-Pro-B Natriuret Pep 5830 H Impressions: Chest X-Ray 09/12/16 18:57 IMPRESSION: Basilar infiltrates, likely pneumonia. Chest/Abdomen CTA 09/13/16 00:00 IMPRESSION: 1. There is no evidence of pulmonary emboli. 2. There is apical pleural/parenchymal scarring. 3. Small areas of ground-glass opacification are present fairly extensively in the right upper lobe and apical segment of the right lower lobe. This is suggestive of acute infection or atypical infection. Assessment & Plan - Diagnosis (1) Basal pneumonia of both lungs Is this a current diagnosis for this admission?: YesPlan: Continue current antibiotics Rocephin and Zithromax. (2) Benign essential hypertension Is this a current diagnosis for this admission?: Yes (3) HTN (hypertension) Qualifiers: Hypertension type: essential hypertension Qualified Code(s): I10 - Essential (primary) hypertension Is this a current diagnosis for this admission?: YesPlan: Continue current medications (4) UTI (urinary tract infection) Is this a current diagnosis for this admission?: YesPlan: Bladder is present in the urine. it is soni-susceptible. (5) Sepsis Qualifiers: Sepsis type: sepsis due to unspecified organism Qualified Code(s): A41.9 - Sepsis, unspecified organism Is this a current diagnosis for this admission?: YesPlan: Secondary to underlying pneumonia and urinary tract infection. Immediate sepsis has resolved. (6) Diabetes Plan: Sliding scale insulin and glimepiride. His have been elevated more than 250 consistently. We may need to start low-dose Lantus. Will defer till tomorrow. (7) Congestive heart failure Qualifiers: Congestive heart failure type: unspecified congestive heart failure type Congestive heart failure chronicity: chronic Qualified Code(s): I50.9 - Heart failure, unspecified Is this a current diagnosis for this admission?: YesPlan: Reports a history of this. No echo to date is available. Check BNP in the morning. At this point the patient looks relatively euvolemic. - Time Time Spent with patient: 25-34 minutes - Inpatient Certification Medical Necessity: Need Close Monitoring Due to Risk of Patient Decompensation
[2016-09-15] MEDS: LORAZEPAM 1 MG TABLET PO PRN (21:28)
[2016-09-16 07:13] LABS: ABSOLUTE BASOPHILS # (AUTO) 0.1 10^3/uL (0.0-0.2); ABSOLUTE EOSINOPHILS # (AUTO) 0.3 10^3/uL (0.0-0.6); ABSOLUTE LYMPHOCYTES (AUTO) 1.8 10^3/uL (0.5-4.7); ABSOLUTE MONOCYTES (AUTO) 0.4 10^3/uL (0.1-1.4); ABSOLUTE NEUT (AUTO) 7.3 10^3/uL (1.7-8.2); BASOPHILS % (AUTO) 0.7 % (0-2); EOSINOPHILS % (AUTO) 2.6 % (0-6); HEMATOCRIT 24.1 % (36.0-47.0); HEMOGLOBIN 8.2 g/dL (12.0-15.5); HGB HCT DIFFERENCE 0.5; MEAN CORPUSCULAR HEMOGLOBIN 32.4 pg (27.0-33.4); MEAN CORPUSCULAR VOLUME 95 fl (80-97); MONOCYTES % (AUTO) 4.3 % (3-13); RED BLOOD COUNT 2.53 10^6/uL (3.72-5.28); RED CELL DISTRIBUTION WIDTH 15.8 % (11.5-14.0); SEGMENTED NEUTROPHILS % (AUTO) 74.4 % (42-78); WHITE BLOOD COUNT 9.8 10^3/uL (4.0-10.5)
[2016-09-16 07:45] LABS: ANION GAP 9 (5-19); BLOOD UREA NITROGEN 16 mg/dL (7-20); CALCIUM 9.6 mg/dL (8.4-10.2); CARBON DIOXIDE 28 mmol/L (22-30); CHLORIDE 99 mmol/L (98-107); CREATININE RESULT 0.77 mg/dL (0.52-1.25); GLUCOSE 242 mg/dL (75-110); MAGNESIUM 1.5 mg/dL (1.6-2.3); POTASSIUM 4.6 mmol/L (3.6-5.0); SODIUM 136.4 mmol/L (137-145)
[2016-09-16] MEDS: ENOXAPARIN SODIUM INJ 40 MG/0.4 ML DISP.SYRIN SUBCUT SCH (08:02)
[2016-09-16] MEDS: INSULIN LISPRO 100 UNIT/ML 3 ML VIAL SUBCUT PRN (08:02)
[2016-09-16] MEDS ORDERED: LEVOFLOXACIN 750 MG TABLET PO SCH (10:00)
[2016-09-16] MEDS: GLIMEPIRIDE 4 MG TABLET PO SCH (10:25)
[2016-09-16] MEDS: LOSARTAN POTASSIUM 50 MG TABLET PO SCH (10:26)
[2016-09-16] MEDS: METOPROLOL TARTRATE 50 MG TABLET PO SCH (10:26)
[2016-09-16] MEDS: MAGNESIUM OXIDE 400 MG TABLET PO SCH (10:26)
--- NOTE | 2016-09-16 11:46 | PDOC DISCHARGE SUMMARY ---
General - Admit/Disc Date/PCP Admission Date/Primary Care Provider: 09/12/16 22:50 Discharge Date: 09/16/16 - Discharge Diagnosis (1) Basal pneumonia of both lungs Is this a current diagnosis for this admission?: YesSummary: The patient has done well with her pneumonia. She will continue for another 10 days on Levaquin as an outpatient. This will give her a total of 14 days of treatment. She will need to follow-up with her primary care in 1-2 weeks. (2) Benign essential hypertension Is this a current diagnosis for this admission?: YesSummary: Continue home medications (3) HTN (hypertension) Is this a current diagnosis for this admission?: YesSummary: Continue home medications. (4) UTI (urinary tract infection) Is this a current diagnosis for this admission?: YesSummary: Patient had a E. coli UTI. She is going to be treated with Levaquin for her underlying pneumonia this will also cover treatment for her urinary tract infection. (5) Sepsis Is this a current diagnosis for this admission?: YesSummary: Resolved. (6) Diabetes Summary: Continue home medications. (7) Congestive heart failure Is this a current diagnosis for this admission?: YesSummary: This is a reported history of heart failure. It is unknown which type of heart failure the patient has had in the past. No recent echo is available. She is On Lasix at home. The patient Is euvolemic this visit. continue home medications - Additional Information Resuscitation Status: Do Not Resuscitate Discharge Diet: Regular Discharge Activity: Activity As Tolerated Home Medications: Furosemide [Lasix] 40 mg PO DAILY 09/13/16 Glimepiride [Amaryl 4 mg Tablet] 4 mg PO BID 09/13/16 Insulin Glargine,Hum.rec.anlog [Toujeo Solostar] 30 units SQ DAILY 09/13/16 Lorazepam [Ativan 1 mg Tablet] 1 mg PO TIDP PRN 09/13/16 Losartan Potassium [Cozaar 100 mg Tablet] 100 mg PO DAILY 09/13/16 Magnesium Oxide [Mag-Ox 400 mg Tablet] 800 mg PO TID 09/13/16 Metformin HCl [Glucophage] 500 mg PO TID 09/13/16 Metoprolol Tartrate [Lopressor] 50 mg PO BID 09/13/16 Omeprazole 40 mg PO BID 09/13/16 Oxycodone HCl/Acetaminophen [Percocet 5-325 mg Tablet] 1 tab PO Q6HP PRN Levofloxacin [Levaquin 750 mg Tablet] 750 mg PO DAILY #10 tablet 09/16/16 History of Present Illness History of Present Illness: This is the patient's HPI and initial Hospital course as per previous attendings : :Subjective Progress Note for:: 09/13/16 Subjective:: reason for visit: f/u pneumonia, sepsis, anemia hospital course: per other's notes - "ZOHAIB MITCHELL is a 66 year old female with no chronic underlying pulmonary disease by her account, such as asthma or COPD, although discharge summary from 2013 describes her as having COPD, also, with, by her account, lung cancer, status post chemotherapy for same, currently in remission, who presents to the emergency room for sudden onset of shortness of breath and difficulty breathing at 2 PM on the fourth. 85 % on room air upon initial evaluation by EMS. Was in significant respiratory distress upon arrival in the emergency room. With nonrebreather, sats improved 100%, and she is breathing more comfortably. Describes a dry cough, along with "hot flashes." No nausea vomiting. Mild abdominal and chest discomfort, along with right shoulder pain. No diarrhea or dysuria. Has not smoked for several years. No home oxygen. Denies sleep apnea. s noted above, was hospitalized on our service September 08 - September 10, 2013 with final diagnoses of acute asthmatic bronchitis, COPD exacerbation and acute respiratory failure secondary to above. History and physical and discharge summary have been reviewed. Again, patient denies underlying COPD. Patient has been discussed with emergency room physician who evaluated the patient. Initial plans by the emergency room physician were to obtain CT angiogram of chest. However, with workup now revealing bibasilar pneumonia by plain chest x-ray, he no longer feels such that he is warranted. Discussion with evaluating ER physician concerning same it 12:15 AM on September 13, 2016." I inherited her care Tuesday to find her sitting on edge of the bed in mild respiratory distress after returning from the bathroom to urinate. c/o cough with phlegm, feeling "poorly" but denies chest pain, palpitations, N/V, fever or chills. ROS: as above, total 10 system reviewed, remaining systems negative." Hospital Course Hospital Course: I took over the patient's care on 09/14/2016. From that time for the patient continued to improve on her IV antibiotics. Eventually these antibiotics were switched to oral Levaquin and the patient continued to do well. She was ambulated in the hallways and was found to sat at 96% with physical therapy Without oxygen. At this point the patient is deemed to be fit for discharge. She will need to follow-up with her primary care physician in 1-2 weeks. Physical Exam Vital Signs: Temp Pulse Resp BP Pulse Ox 98.2 F 96 16 131/58 H 95 09/16/16 07:38 09/16/16 09:00 09/16/16 09:00 09/16/16 07:38 09/16/16 10:58 Intake & Output 09/15/16 09/16/16 09/17/16 06:59 06:59 06:59 Intake Total 1494 960 Output Total 950 300 Balance 544 660 Physical exam: General: This is a well-developed well-nourished overweight white female resting in her chair currently in no acute distress. Appears brighter this morning Heart: Regular rate and rhythm no murmurs rubs or gallops Lungs: Diminished breath sounds at the bases bilaterally with equal rise and fall of the chest Abdomen: Nondistended Extremities: Trace edema. No clubbing cyanosis Neuro: Awake alert oriented cranial nerves are grossly intact Results Laboratory Results: 09/16/16 06:00 09/16/16 06:00 09/16/16 09/16/16 06:00 06:00 WBC 9.8 RBC 2.53 L Hgb 8.2 L Hct 24.1 L MCV 95 MCH 32.4 MCHC 34.0 RDW 15.8 H Plt Count 170 Seg Neutrophils % 74.4 Lymphocytes % 18.0 Monocytes % 4.3 Eosinophils % 2.6 Basophils % 0.7 Absolute Neutrophils 7.3 Absolute Lymphocytes 1.8 Absolute Monocytes 0.4 Absolute Eosinophils 0.3 Absolute Basophils 0.1 Sodium 136.4 L Potassium 4.6 Chloride 99 Carbon Dioxide 28 Anion Gap 9 BUN 16 Creatinine 0.77 Est GFR ( Amer) > 60 Est GFR (Non-Af Amer) > 60 Glucose 242 H Calcium 9.6 Magnesium 1.5 L 09/13/16 09/16/16 05:30 06:00 NT-Pro-B Natriuret Pep 5830 H 4990 H Impressions: Chest X-Ray 09/12/16 18:57 IMPRESSION: Basilar infiltrates, likely pneumonia. Chest/Abdomen CTA 09/13/16 00:00 IMPRESSION: 1. There is no evidence of pulmonary emboli. 2. There is apical pleural/parenchymal scarring. 3. Small areas of ground-glass opacification are present fairly extensively in the right upper lobe and apical segment of the right lower lobe. This is suggestive of acute infection or atypical infection. Qualifiers PATEINT BEING DISCHARGED WITH ANY OF THE FOLLOWING DIAGNOSIS?: No Plan Time Spent: Less than 30 Minutes
[2016-09-16 14:01] VITALS: BP 133/59
== END 2016-09-16 14:36 | disposition home or self-care (01) | DRG 871 ==
LOC: ER 18:54 → EH 21:08 → UNDOADMIN 21:08 → EH 22:26 → 5 09-13 14:14
PROVIDERS: ADMIT Family Medicine; ATTEND Family Medicine
PROC: 3E0F73Z Introduction of Anti-inflammatory into Respiratory Tract, Via Natural or Artificial Opening (ICD-10-PCS; principal; 2016-09-13)
DX: A41.9 Sepsis, unspecified organism (principal); J18.9 Pneumonia, unspecified organism; N39.0 Urinary tract infection, site not specified; E10.40 Type 1 diabetes mellitus with diabetic neuropathy, unspecified; I11.0 Hypertensive heart disease with heart failure; E83.42 Hypomagnesemia; D64.9 Anemia, unspecified; E66.9 Obesity, unspecified; B96.20 Unspecified Escherichia coli [E. coli] as the cause of diseases classified elsewhere; M19.90 Unspecified osteoarthritis, unspecified site; I50.9 Heart failure, unspecified; Z85.118 Personal history of other malignant neoplasm of bronchus and lung; Z68.31 Body mass index [BMI] 31.0-31.9, adult; Z85.828 Personal history of other malignant neoplasm of skin; Z90.49 Acquired absence of other specified parts of digestive tract; Z90.710 Acquired absence of both cervix and uterus; Z87.09 Personal history of other diseases of the respiratory system; Z66 Do not resuscitate; Z79.4 Long term (current) use of insulin; Z92.21 Personal history of antineoplastic chemotherapy; Z79.84 Long term (current) use of oral hypoglycemic drugs; Z88.6 Allergy status to analgesic agent; Z79.899 Other long term (current) drug therapy; Z87.891 Personal history of nicotine dependence
CPT/HCPCS: 36415; 71010; 71275; 80048; 80053; 81001; 82607; 82728; 82746; 82803; 82962; 83540; 83550; 83605; 83735; 83880; 84466; 85025; 85045; 85610; 87040; 87086; 87088; 87186; 93005; 93010; 94640; 94799; 96365; 99285; G8978-GP; G8979-GP; G8980-GP; J0456; J0696; J1642; J1650; J1815; J1956; J3475; J3490; J7060; J7620

== ENCOUNTER 2016-10-09 22:22 | Emergency (ER) | payer MEDICARE, OTHER ==
[2016-10-09] MEDS ORDERED: NORMAL SALINE 250 ML IV ONE (23:20)
--- NOTE | 2016-10-09 23:47 | ER Document Report ---
ED General - General Chief Complaint: Breathing Difficulty Stated Complaint: TROUBLE BREATHING Time Seen by Provider: 10/09/16 23:06 TRAVEL OUTSIDE OF THE [place] IN LAST 30 DAYS: No - HPI Patient complains to provider of: Shortness of breath Notes: Patient is coming in for evaluation shortness of breath. Patient states recently was admitted for pneumonia also recently released from local hospital for possible IA. Patient's states patient messed up her medications this point actually took a picture of some of her other medications and missed her Lasix patient began short of breath just prior to arrival patient was given Lasix prior to coming to urinate now is breathing better. Patient denies any pain states right arm pain. Patient does have a history of cancer no other complaints at this time no nausea no vomiting no chest pain or diarrhea. No diaphoresis. Patient states currently does not have any dyspnea or shortness of breath - Related Data Allergies/Adverse Reactions: codeine [Codeine] Allergy (Verified 09/12/16 23:01) propoxyphene napsylate [From Darvocet-N 100] Allergy (Verified 09/07/13 20:26) hydrocodone [From Vicodin] Adverse Reaction (Mild, Verified 09/12/16 23:01) Migraine Past Medical History - Social History Smoking Status: Unknown if Ever Smoked Family History: Reviewed & Not Pertinent Patient has suicidal ideation: No Patient has homicidal ideation: No - Past Medical History Cardiac Medical History: Reports: Hx Congestive Heart Failure - No documentation of ejection fraction in our records. Patient uncertain., Hx Hypercholesterolemia, Hx Hypertension Denies: Hx DVT, Hx Heart Attack, Hx Pulmonary Embolism Pulmonary Medical History: Denies: Hx Asthma, Hx COPD, Hx Sleep Apnea Neurological Medical History: Denies: Hx Cerebrovascular Accident, Hx Seizures Endocrine Medical History: Reports: Hx Diabetes Mellitus Type 1, Hx Diabetes Mellitus Type 2. Denies: Hx Hyperthyroidism, Hx Hypothyroidism Renal/ Medical History: Denies: Hx Peritoneal Dialysis Malignancy Medical History: Reports: Hx Lung Cancer - In remission, status post chemotherapy., Hx Skin Cancer GI Medical History: Reports: Hx Gastroesophageal Reflux Disease, Hx Hiatal Hernia. Denies: Hx Cirrhosis, Hx Hepatitis, Hx Ulcer Musculoskeltal Medical History: Reports Hx Arthritis Psychiatric Medical History: Denies: Hx Depression Infectious Medical History: Denies: Hx C-Diff, Hx Hepatitis, Hx MRSA Past Surgical History: Reports: Hx Appendectomy, Hx Hysterectomy. Denies: Hx Mastectomy, Hx Open Heart Surgery, Hx Pacemaker - Immunizations Hx Diphtheria, Pertussis, Tetanus Vaccination: No Hx Pneumococcal Vaccination: 01/09/13 Review of Systems - Review of Systems Constitutional: No symptoms reported EENT: No symptoms reported Cardiovascular: No symptoms reported Respiratory: Short of breath Gastrointestinal: No symptoms reported Genitourinary: No symptoms reported Female Genitourinary: No symptoms reported Musculoskeletal: No symptoms reported Skin: No symptoms reported Hematologic/Lymphatic: No symptoms reported Neurological/Psychological: No symptoms reported -: Yes All other systems reviewed and negative Physical Exam - Vital signs Vitals: Temp Pulse Resp BP Pulse Ox 98.3 F 88 16 138/63 H 97 10/09/16 22:26 10/09/16 22:26 10/09/16 22:26 10/09/16 22:26 10/09/16 22:26 Interpretation: Normal - General General appearance: Appears well, Alert - HEENT Head: Normocephalic, Atraumatic Eyes: Normal Pupils: PERRL - Respiratory Respiratory status: No respiratory distress Chest status: Nontender Breath sounds: Normal Chest palpation: Normal - Cardiovascular Rhythm: Regular Heart sounds: Normal auscultation Murmur: No - Abdominal Inspection: Normal Distension: No distension Bowel sounds: Normal Tenderness: Nontender Organomegaly: No organomegaly - Back Back: Normal, Nontender - Extremities General upper extremity: Normal inspection, Nontender, Normal color, Normal ROM , Normal temperature General lower extremity: Normal inspection, Nontender, Normal color, Normal ROM , Normal temperature, Normal weight bearing. No: Dagmar's sign - Neurological Neuro grossly intact: Yes Cognition: Normal Orientation: AAOx4 [place] Coma Scale Eye Opening: Spontaneous [place] Coma Scale Verbal: Oriented Renée Coma Scale Motor: Obeys Commands Ren[place] Coma Scale Total: 15 Speech: Normal Motor strength normal: LUE, RUE, LLE, RLE Sensory: Normal - Psychological Associated symptoms: Normal affect, Normal mood - Skin Skin Temperature: Warm Skin Moisture: Dry Skin Color: Normal Course - Re-evaluation Re-evalutation: 10/09/16 23:46 Your recent hospitalization will check CTA for PE along with other laboratory values. Currently at this time patient's vital signs continue to look stable. 10/10/16 03:40 Patient's lab work does show the increase in creatinine minimal failure with a slightly elevated lactic acid more likely related to the patient doubling her dose of her Lasix. More likely due to the patient's missed doses and doubling her dose of Lasix prior to arrival treated herself. BNP is trending downward her previous admission. Troponin is negative. CTA also negative for PE although does show increase soft tissue densities. Did discuss this with the patient was aware there is disease getting worse. Patient shows no signs of hypoxia. With ambulated to the ER was able to tolerate this with minimal weakness no signs of overt hypoxia. Discussion was made with the patient patient states that she is feeling better at this time and agrees with disposition home. No signs of infection were found patient was to be back to her baseline patient will be discharged home to follow-up with primary care physician Anemia seem to be chronic. 10/10/16 03:45 - Vital Signs Vital signs: Temp Pulse Resp BP Pulse Ox 98.3 F 88 18 130/56 H 94 10/09/16 22:26 10/09/16 22:26 10/10/16 00:18 10/10/16 00:18 10/10/16 00:18 - Laboratory Result Diagrams: 10/10/16 00:10 10/10/16 00:10 Laboratory results interpreted by me: 10/10/16 10/10/16 10/10/16 00:10 00:10 00:10 RBC 2.77 L Hgb 8.6 L Hct 26.3 L RDW 16.1 H Sodium 136.8 L BUN 32 H Creatinine 1.26 H Est GFR ( Amer) 52 L Est GFR (Non-Af Amer) 43 L Glucose 334 H Lactic Acid Creatine Kinase 29 L NT-Pro-B Natriuret Pep 3150 H Urine Glucose (UA) Urine Blood 10/10/16 10/10/16 00:10 02:35 RBC Hgb Hct RDW Sodium BUN Creatinine Est GFR ( Amer) Est GFR (Non-Af Amer) Glucose Lactic Acid 3.8 H Creatine Kinase NT-Pro-B Natriuret Pep Urine Glucose (UA) >=500 H Urine Blood SMALL H Discharge - Discharge Clinical Impression: Dyspnea resolved Lung cancer Qualifiers: Laterality: unspecified laterality Lung location: unspecified part of lung Qualified Code(s): C34.90 - Malignant neoplasm of unspecified part of unspecified bronchus or lung Condition: Good Disposition: HOME, SELF-CARE Instructions: Dyspnea, Nonspecific ([facility]) Additional Instructions: Your seen today for shortness of breath. Vital signs have remained stable while here in the ER. Your lab work shows very minimal acute renal failure more likely this may be due to taking her medications as prior to arrival. More likely her dyspnea is related to missing her medication earlier this morning. However recommend continuing your medication as prescribed. Please call your family physician on Tuesday. Return to the ER if any symptoms worsen. Unfortunately your CTA although not showing any signs of blood clots in the lungs or infection in her lungs did show some worsening of the disease any long increased size of lung nodules from her previous CT scan performed here at her last visit. Please make sure you with this information to your doctors.
[2016-10-10 00:31] LABS: ABSOLUTE EOSINOPHILS # (AUTO) 0.2 10^3/uL (0.0-0.6); ABSOLUTE LYMPHOCYTES (AUTO) 2.7 10^3/uL (0.5-4.7); ABSOLUTE MONOCYTES (AUTO) 0.5 10^3/uL (0.1-1.4); ABSOLUTE NEUT (AUTO) 5.3 10^3/uL (1.7-8.2); BASOPHILS % (AUTO) 0.5 % (0-2); EOSINOPHILS % (AUTO) 2.2 % (0-6); HEMATOCRIT 26.3 % (36.0-47.0); HEMOGLOBIN 8.6 g/dL (12.0-15.5); HGB HCT DIFFERENCE -0.5; LYMPHOCYTES % (AUTO) 30.6 % (13-45); MEAN CORPUSCULAR HEMOGLOBIN 30.9 pg (27.0-33.4); MEAN CORPUSCULAR HGB CONC 32.5 g/dL (32.0-36.0); MEAN CORPUSCULAR VOLUME 95 fl (80-97); RED BLOOD COUNT 2.77 10^6/uL (3.72-5.28); RED CELL DISTRIBUTION WIDTH 16.1 % (11.5-14.0); SEGMENTED NEUTROPHILS % (AUTO) 60.7 % (42-78); WHITE BLOOD COUNT 8.7 10^3/uL (4.0-10.5)
[2016-10-10 00:37] LABS: PROTHROMBIN TIME 12.4 SEC (11.4-15.4)
[2016-10-10 00:38] LABS: VENOUS BLOOD BASE EXCESS 3.3 mmol/L; VENOUS BLOOD HCO3 29.2 mmol/L (20-32); VENOUS BLOOD PCO2 50.6 mmHg (35-63); VENOUS BLOOD PH 7.38 (7.30-7.42)
[2016-10-10 00:52] LABS: ALANINE AMINOTRANSFERASE 19 U/L (9-52); ALBUMIN 3.6 g/dL (3.5-5.0); ALKALINE PHOSPHATASE 119 U/L (38-126); ANION GAP 12 (5-19); ASPARTATE AMINO TRANSFERASE 15 U/L (14-36); BILIRUBIN,DIRECT 0.4 mg/dL (0.0-0.4); BILIRUBIN,TOTAL 0.4 mg/dL (0.2-1.3); BLOOD UREA NITROGEN 32 mg/dL (7-20); CARBON DIOXIDE 26 mmol/L (22-30); CHLORIDE 99 mmol/L (98-107); CREATINE KINASE 29 U/L (30-135); CREATININE RESULT 1.26 mg/dL (0.52-1.25); GLUCOSE 334 mg/dL (75-110); POTASSIUM 4.8 mmol/L (3.6-5.0); SODIUM 136.8 mmol/L (137-145); TOTAL PROTEIN 6.6 g/dL (6.3-8.2)
[2016-10-10 01:04] LABS: CREATINE KINASE MB 0.43 ng/mL (<4.55)
[2016-10-10 01:05] LABS: TROPONIN I < 0.012 ng/mL
--- NOTE | 2016-10-10 02:06 | RADIOLOGY REPORT (SQ) ---
EXAM DESCRIPTION: CTA CHEST COMPLETED DATE/TIME: 10/10/2016 1:30 am REASON FOR STUDY: sob COMPARISON: 09/13/2016. TECHNIQUE: CT scan of the chest performed using helical scanning technique with dynamic intravenous contrast injection. Images reviewed with lung, soft tissue and bone windows. Reconstructed coronal and sagittal MPR images reviewed. Additional 3 dimensional post-processing performed to develop Maximal Intensity Projection images (MT P). All images stored on PACS. All CT scanners at this facility use dose modulation, iterative reconstruction, and/or weight based d osing when appropriate to reduce radiation dose to as low as reasonably achievable (ALARA). [facility]: Dose Right [facility]: CareDose [facility]: Dose Right [facility]: Teradose 4D [facility]: Smart [employer] CONTRAST TYPE AND DOSE: contrast/concentration: Isovue 370.00 mg/ml; Total Contrast Delivered: 78.0 ml; Total Saline Delivered: 110.0 ml RENAL FUNCTION: Creatinine 1.3 RADIATION DOSE: Up-to-date CT equipment and radiation dose reduction techniques were employed. CTDIv ol: 9.9 - 30.9 mGy. DLP: 1186 mGy-cm. . LIMITATIONS: None. FINDINGS: LUNGS AND PLEURA: Soft tissue nodules of the left upper lobe extent from the left hilum an d surround pulmonary arteries of the left upper lobe. Scattered interstitial markings and small nodu lar lesions involves the bilateral lung calvo. AORTA AND GREAT VESSELS: No aneurysm or dissection. HEART: No pericardial effusion. Moderate coronary arterial calcification. PULMONARY ARTERIES: No emboli visualized in the main pulmonary arteries or the segmental branches. HILAR AND MEDIASTINAL STRUCTURES: Moderate left perihilar lymphadenopathy or soft tissue mass, mild m ediastinal and mild right hilar lymphadenopathy includes a 3.5 cm soft tissue mass anterior to the le ft main pulmonary artery. HARDWARE: Right mini port catheter appears adequate. UPPER ABDOMEN: No significant findings. Limited exam. THYROID AND OTHER SOFT TISSUES: No masses. No adenopathy. BONES: No acute or significant finding. 3D MIPS: Confirm above findings. OTHER: No other significant finding. IMPRESSION: 1. Increased left upper lobar perihilar soft tissue nodules and matted soft tissue medi astinal and hilar lesions, left more than right compared with exam from 2016. Malignancy is of 1st consideration. 2. No evidence of pulmonary embolus. TECHNICAL DOCUMENTATION: JOB ID: [id number] Quality ID # [id number]: Final reports with documentation of one or more dose reduction techniques (e.g., Au tomated exposure control, adjustment of the mA and/or kV according to patient size, use of iterative reconstruction technique) 2010 [employer]- All Rights Reserved
[2016-10-10 02:59] LABS: APPEARANCE,URINE CLEAR; BILIRUBIN,URINE NEGATIVE (NEGATIVE); GLUCOSE, URINE >=500 mg/dL (NEGATIVE); KETONES,URINE NEGATIVE (NEGATIVE); LEUKOCYTE ESTERASE,URINE NEGATIVE (NEGATIVE); NITRITE,URINE NEGATIVE (NEGATIVE); PROTEIN,URINE NEGATIVE (NEGATIVE); URINE SPECIFIC GRAVITY 1.017; UROBILINOGEN,URINE NEGATIVE mg/dL (<2.0)
[2016-10-10 04:49] VITALS: BP 128/49
--- NOTE | 2016-10-10 11:19 | EKG REPORT ---
SEVERITY:- NORMAL ECG - SINUS RHYTHM : Confirmed by: Stefan Aj 10-Oct-2016 11:18:57
--- NOTE | 2016-10-10 11:19 | EKG REPORT ---
SEVERITY:- NORMAL ECG - SINUS RHYTHM : Confirmed by: Stefan Aj 10-Oct-2016 11:18:44
== END 2016-10-10 04:10 | disposition home or self-care (01) ==
LOC: ER 22:22
DX: R06.00 Dyspnea, unspecified (principal); C34.90 Malignant neoplasm of unspecified part of unspecified bronchus or lung; Z88.6 Allergy status to analgesic agent; E11.9 Type 2 diabetes mellitus without complications; Z90.710 Acquired absence of both cervix and uterus
CPT/HCPCS: 36415; 36591; 71275; 80053; 81001; 82550; 82553; 82803; 83605; 83880; 84484; 85025; 85610; 93005; 93010; 99285